=== PATIENT | female | born 1950 | race Caucasian/White ===

== ENCOUNTER 2016-10-15 18:30 | Emergency (ER) | payer OTHER ==
--- NOTE | 2016-10-15 18:55 | PDOC ---
History of Present Illness - General Chief Complaint: Respiratory Stated Complaint: COUGH Time Seen by Provider: 10/15/16 18:47 History Source: Patient Exam Limitations: No Limitations - History of Present Illness Initial Comments: 10/15/16 19:16 This is a 65-year-old female who comes in complaining of 4 days of upper respiratory tract type symptoms, cough, congestion, sore throat and, low-grade fever and bodyaches. Patient called her doctor 2 days ago told her she should go to the emergency room for evaluation because she is on an immunosuppressant for rheumatoid arthritis however patient thought it would get better but has not improved so she now comes in for evaluation. Patient said that she has some phlegm intermittently that is green and yellow. Patient's maximum temperature today was 100.7. PAST MEDICAL HISTORY: PAST SURGICAL HISTORY: no significant history FAMILY HISTORY: no pertinant history SOCIAL HISTORY: Pt lives with family and is employed. MEDICATIONS: reviewed ALLERGIES: As per nursing notes Review of Systems General: Positive low-grade fevers or chills, no weakness, no weight loss HEENT: No change in vision. Positive sore throat,. No ear pain CardioVascular: no chest pain or shortness of breath Respiratory: Positive cough, no wheezing. Gastrointestinal: no nausea, vomitting, diarrhea or constipation, No rectal bleeding Genitourinary: No dysuria, hematuria, or frequency Musculoskeletal: No joint or muscle pain or swelling Neurologic: No headache, vertigo, dizziness or loss of consciousness Psychiatric: nor depression Skin: No rashes or easy bruising Endocrine: no increased thirst or abnormal weight change Allergic: no skin or latex allergy All other systems reviewed and normal Exam: General: Well-nourished well-developed individual, no acute distress HEENT: Throat: there is some mild erythema of the posterior oropharynx is no exudate and tonsils are not enlarged Neck: Supple, no meningeal signs, some small lymphadenopathy on right submandibular EYESl pupils are equal reactive and round, extraocular motion intact Chest: Nontender to palpation Cardiac: S1-S2 normal, regular rate and rhythm, no murmurs rubs or gallops Respiratory: Lungs clear to auscultation bilateral Abdomen: Soft, nondistended, normal bowel sounds, nontender to palpation diffusely Extremities: Warm, dry, no cyanosis, clubbing, or edema Skin: No rashes Neuro: Alert and oriented x3, nonfocal exam, grossly intact, normal gait Psych: Normal mood and affect 10/15/16 20:46 Chest x-ray shows no acute pathology as reviewed by me CBC was done white count is 2. to patient's baseline is around 3.3. Assessment and plan: This is an 65-year-old female who comes in complaining of cough congestion 3 days with low-grade fever. Patient symptoms and exam are suggestive of a viral etiology. Patient did however get a chest x-ray that was negative for any infiltrate. Patient had a CBC done as she is on an immunosuppressant for her rheumatoid arthritis and her white count was 2.2 which is a little lower than her baseline around 3.3. Patient was discharged and will follow-up with her DrLeonel on Monday. I did send a prescription for azithromycin to the pharmacy and told her if she is runs a high fever or symptoms get significantly worse that she should start the azithromycin and see her doctor Past History - Past Medical History Allergies/Adverse Reactions: Allergies Allergy/AdvReac Type Severity Reaction Status Date / Time codeine Allergy Verified 11/09/15 14:22 Iodinated Contrast Media - Allergy Verified 11/09/15 14:22 Oral and narcotics AdvReac Severe migraines Uncoded 11/09/15 14:22 vomiting Home Medications: Ambulatory Orders Calcium Carbonate/Vitamin D3 [Calcium 600-Vit D3 800 Tablet] 2 each PO DAILY Folic Acid 1 mg PO DAILY 11/09/15 Leflunomide 20 mg PO DAILY 11/09/15 Letrozole 2.5 mg PO DAILY 11/09/15 Multivitamin [Zoo Chews] 1 each PO DAILY 11/09/15 [place]-3S/Dha/Epa/Fish Oil/D3 [Fish Oil + D3 Softgel] 2 each PO DAILY 11/09/15 Ranitidine HCl [Zantac] 150 mg PO BID 11/09/15 Valacyclovir HCl [Valtrex -] 1,000 mg PO DAILY 11/09/15 Azithromycin [Zithromax 250mg Tablets -] 250 mg PO DAILY #6 tablet 10/15/16 Cancer: Yes (BREAST CA) Cardiac Disorders: Yes (MVP) GI Disorders: Yes (IBS) - Surgical History Cardiac Surgery: Yes (CATH NEG) - Psycho/Social/Smoking Cessation Hx Anxiety: No Suicidal Ideation: No Smoking History: Never smoked Have you smoked in the past 12 months: No Hx Alcohol Use: No Drug/Substance Use Hx: No Substance Use Type: None Hx Substance Use Treatment: No ED Treatment Course - LABORATORY CBC & Chemistry Diagram: 10/15/16 19:40 *DC/Admit/Observation/Transfer Diagnosis at time of Disposition: Viral upper respiratory tract infection - Discharge Dispostion Disposition: HOME Condition at time of disposition: Good Admit: No - Patient Instructions Additional Instructions: Tylenol or Motrin as needed for fevers. If your symptoms get significantly worse tomorrow or you run a fever greater than 101 go to the pharmacy and steel pickler the prescription for azithromycin and take as directed. Otherwise follow-up with your primary care Dr. on Monday Return to the emergency department immediately with ANY new, persistent or worsening symptoms. Continue any medications as previously prescribed by your physician. You should follow up with your primary doctor as soon as possible regarding today's emergency department visit. . Please make sure your doctor reviews the results of your emergency evaluation. Thank you for coming to the Emergency Department today for your care. It was a pleasure to see you today. Please note that your evaluation is INCOMPLETE until you follow-up with your doctor.
[2016-10-15 18:56] VITALS: BP 116/83; PULSE 84; TEMP 98.5; BMI 20.5
[2016-10-15 20:32] LABS: MCH 32.4 pg (25.7-33.7); MCHC 34.6 g/dl (32.0-36.0); MEAN CELL VOLUME 93.6 fl (80-96); MEAN PLT VOLUME 8.3 fl (7.5-11.1); PLATELET COUNT 144 K/MM3 (134-434); RDW 12.3 % (11.6-15.6); WHITE BLOOD COUNT 2.2 K/mm3 (4.0-10.8)
== END 2016-10-15 20:57 | disposition home or self-care (01) ==
LOC: FER 18:30
DX: J06.9 Acute upper respiratory infection, unspecified (principal); B97.89 Other viral agents as the cause of diseases classified elsewhere; Z85.3 Personal history of malignant neoplasm of breast; I34.1 Nonrheumatic mitral (valve) prolapse
CPT/HCPCS: 36415; 71020-TC; 85025; 87040; 99282-25

== ENCOUNTER → 2019-03-15 | Emergency (ER) | payer OTHER ==
[~2019-03-15] MED LIST: ASPIRIN 325 MG TABLET ONE; ASPIRIN 325 MG TABLET PO ONE; ATORVASTATIN CA 80 MG TABLET (FP) ONE; ATORVASTATIN CA 80 MG TABLET (FP) PO ONE; CLOPIDOGREL BISULFATE 300 MG TABLET ONE; CLOPIDOGREL BISULFATE 300 MG TABLET PO ONE; HEPARIN - 25,000 UNIT in SODIUM CHLORIDE 495 ML IV SCH; HEPARIN INFUSION - 25,000 UNITS/500 ML INFUS.BAG IVPB ONE; HEPARIN NA (PORCINE) 5,000 UNITS/ML 1ML VIAL IVPUSH ONE; HEPARIN NA (PORCINE) 5,000 UNITS/ML 1ML VIAL ONE; MIDAZOLAM HCL 2 MG/2 ML SINGLE DOSE VIAL ONE; NITROGLYCERIN 50MG/D5W 250ML 50 MG/250 ML ML IVPB ONE; NITROGLYCERIN SUBLINGUAL 1/150 0.4 MG TAB ONE; NITROGLYCERIN SUBLINGUAL 1/150 0.4 MG TAB SL ONE
--- NOTE | 2019-03-15 13:33 | PDOC ---
Attending Attestation - Resident Resident Name: Alis Garcia - ED Attending Attestation I have performed the following: I have examined & evaluated the patient, The case was reviewed & discussed with the resident, I agree w/resident's findings & plan, Exceptions are as noted - HPI HPI: 03/15/19 14:43 Substernal chest pain described as a "tightness" since awakening this morning at about 6 AM. Pain has been persistent and accompanied by intermittent nausea , no vomiting, chills but no diaphoresis, and no shortness of breath. Patient has had chest pain in the past and has been referred to a benefits specialist recruiter. She sees Dr. Kim, but has not been diagnosed with heart disease. She states that she had a "hole in her heart" and a valve problem as a child, but that these never caused significant problems. She is not aware of being hypertensive , having diabetes, or elevated cholesterol. She does not smoke. - Physicial Exam PE: 03/15/19 14:45 Appears anxious. Chest pain persistent, described as a tightness. Vital signs are within normal limits. PERRLA, fundi benign, ENT clear Neck supple without bruit mass or nodes Lungs clear, full breath sounds bilaterally, no rales CV S1-S2 normal without murmur rub or gallop pulses full and symmetric no JVD or edema no bruit regular rate 82 Abdomen soft nontender without mass organomegaly Neurological intact Extremities no CCE Skin clear, no rash, adequate turgor and wet mucous membranes EKG shows ST elevations, most prominent in lead V2, but also present in V1 and V3. Elevation in V2 is approximately 3 to 4 mm Chest x-ray is normal Laboratories including troponin are pending. - Critical Care Time Total Critical Care Time: 30 Critical Care Statement: The care of this patient involved high complexity decision making to prevent further life threatening deterioration of the patient 's condition and/or to evaluate & treat vital organ system(s) failure or risk of failure. - Medical Decision Making 03/15/19 14:54 Assessment: Acute ST elevation [place], persistent chest pain. Hemodynamically stable. No sign of failure Plan : Aspirin, Plavix, and heparin. Nitroglycerin for pain control. Dr. Kim, the patient's benefits specialist recruiter, was paged. Dr. Gracia is on-call, who answered the page. Dr. Garcia, the resident, discussed the case with Dr. Gracia He recommended the administration of heparin, Plavix, and transfer for catheterization as soon as possible to [facility]. He provided the name of an contracts attorney there and we are attempting to contact him. The patient is hemodynamically stable. Her pain is much improved after 2 doses of sublingual nitroglycerin. Aspirin, heparin, and Plavix were begun as recommended by benefits specialist recruiter. 03/15/19 15:25 [facility] has been contacted. She has been accepted for catheterization by interventional cardiology. She is being transferred by the [facility] transfer team by ambulance for cardiac catheterization. No pain and stable upon discharge from the emergency room.
[2019-03-15 13:53] VITALS: TEMP 98.6; BMI 22.6
[2019-03-15 14:12] LABS: BASO % 0.5 % (0-2.0); EOS % 0.3 % (0-4.5); HEMATOCRIT 39.2 % (32.4-45.2); LYMPH % 10.8 % (8-40); MCH 32.3 pg (25.7-33.7); MCHC 33.3 g/dl (32.0-36.0); MEAN CELL VOLUME 97.2 fl (80-96); MEAN PLT VOLUME 7.7 fl (7.5-11.1); MONO % 7.7 % (3.8-10.2); NEUT % 80.7 % (42.8-82.8); PLATELET COUNT 186 K/MM3 (134-434); RBC 4.03 M/mm3 (3.60-5.2); RDW 12.6 % (11.6-15.6); WHITE BLOOD COUNT 6.1 K/mm3 (4.0-10.8)
--- NOTE | 2019-03-15 14:18 | PDOC ---
History of Present Illness - General Chief Complaint: Pain Stated Complaint: PAIN TO CHEST AND BACK WITH RESPIRATION Time Seen by Provider: 03/15/19 13:33 History Source: Patient - History of Present Illness Initial Comments: 03/15/19 14:14 68 yo F PMH rheumatoid arthritis, interstitial cystitis, IBS, presenting with chest pain. States this morning that she woke up with chest pain radiating into both arms and back, associated with nausea w/o vomiting, chills, and feeling "off". States that she called her primary care doctor, who encouraged her to come in. Complains of ongoing chest pain, but denies SOB, abd pain, urinary symptoms, fevers, constipation/diarrhea. Past History - Past Medical History Allergies/Adverse Reactions: Allergies Allergy/AdvReac Type Severity Reaction Status Date / Time codeine Allergy Severe Vomiting Verified 03/15/19 13:33 Iodinated Contrast Media Allergy Intermediate Difficulty Verified 03/15/19 13:33 Breathing narcotics AdvReac Severe migraines Uncoded 03/15/19 13:34 vomiting Home Medications: Ambulatory Orders Calcium Carbonate/Vitamin D3 [Calcium 600-Vit D3 800 Caplet] 2 each PO DAILY Folic Acid 1 mg PO DAILY 11/09/15 Leflunomide 20 mg PO DAILY 11/09/15 Letrozole 2.5 mg PO DAILY 11/09/15 Multivitamin [Zoo Chews] 1 each PO DAILY 11/09/15 [place]-3S/Dha/Epa/Fish Oil/D3 [Fish Oil-Vit D3 Softgel] 2 each PO DAILY 11/09/15 Valacyclovir HCl [Valtrex -] 1,000 mg PO DAILY 11/09/15 Cancer: Yes (BREAST CA) Cardiac Disorders: Yes (MVP) COPD: No GI Disorders: Yes (IBS) Disorders: Yes (CYSTITIS) Kidney Stones: No Psychiatric Problems: No Lung CA: No Other medical history: RHEUMATOID ARTHRITIS, ORAL HERPES - Surgical History Cardiac Surgery: Yes (CATH NEG) - Immunization History Immunization Up to Date: No - Psycho Social/Smoking Cessation Hx Smoking History: Never smoked Have you smoked in the past 12 months: No Information on smoking cessation initiated: No Hx Alcohol Use: Yes (SOCIAL) Drug/Substance Use Hx: No Substance Use Type: None Hx Substance Use Treatment: No *Physical Exam - Vital Signs Last Vital Signs Temp Pulse Resp BP Pulse Ox 98.6 F 87 20 139/71 100 03/15/19 13:31 03/15/19 14:12 03/15/19 14:12 03/15/19 14:12 03/15/19 14:12 - Physical Exam Comments: 03/15/19 14:20 Gen: well-developed, well-nourished, appears to be distressed Neuro: AAOX4, CN II-XII intact, FTN intact, EOMI, PERRLA, 5/5 strength, SILT HEENT: atraumatic, normocephalic, dry mucous membranes Neck: trachea midline, supple CV: regular rate, regular rhythm, no murmurs, rubs, or gallops Pulm: CTA b/l, no wheezing Abd: soft, non-distended, non-tender MSK: full ROM, intact pulses Extr: no edema, no deformities Skin: warm, dry ED Treatment Course - LABORATORY CBC & Chemistry Diagram: 03/15/19 14:05 03/15/19 14:05 - RADIOLOGY Radiology Studies Ordered: Category Date Time Status CXRPORT [CHEST X-RAY PORTABLE*] [RAD] Stat Radiology 03/15/19 14:00 Ordered - Medications Given in the ED: ED Medications Discontinued Medications Generic Name Dose Route Start Last Admin Trade Name Freq PRN Reason Stop Dose Admin Aspirin 325 mg 03/15/19 14:00 03/15/19 14:10 Asa - PO 03/15/19 14:01 325 mg ONCE ONE Administration Medical Decision Making - Medical Decision Making 03/15/19 14:[address] segment elevation in I, V1, prominently in V2, V3, V4, normal sinus at 82 bpm, concerning for acute STEMI. Will get ACS labs, patient potentially to be sent for cath. - CBC, CMP, trop - EKG, CXR - aspirin 325mg PO given - ctm 03/15/19 14:[address] Ludwig (tanning wheel operator) covering team, Dr. Solis, discussed case and sent current EKG image to the physician. Recommends transfer to nearest cath center. Patient received nitro X2, pain 01/15 to 2. 03/15/19 14:36 CBC unremarkable, first trop negative. Starting atorvastatin 80mg, heparin 60 mg /kg bolus with drip of 12 U/kg/hr, plavix 600mg. 03/15/19 15:09 Spoke with [facility], there will do automatic admit for potential cath. Sent picture of EKG to tanning wheel operator Dr. Sheth. 03/15/19 15:20 Labs wnl Discharge - Discharge Information Problems reviewed: Yes Clinical Impression/Diagnosis: Chest pain, STEMI (ST elevation myocardial infarction) Condition: Stable Disposition: TRANSFER ACUTE CARE/OTHER HOSP - Follow up/Referral Referrals: Jefferson Siegel MD [Primary Care Provider] - - Patient Discharge Instructions - Post Discharge Activity
[2019-03-15 14:27] LABS: ALBUMIN 3.9 g/dl (3.4-5.0); BILIRUBIN,TOTAL 0.6 mg/dl (0.2-1); CALCIUM 8.9 mg/dl (8.5-10); CREATININE 0.6 mg/dl (0.55-1.3); POTASSIUM 3.9 mmol/L (3.5-5.1); TOT PROT 6.5 g/dl (6.4-8.2)
[2019-03-15 15:41] VITALS: BP 125/69; PULSE 92
[2019-03-15 15:43] LABS: INR 1.14 (0.82-1.09); PROTHROMBIN TIME (PATIENT) 12.7 SEC (10.2-13.0)
--- NOTE | 2019-03-16 20:13 | EKG ---
Test Reason : Blood Pressure : / mmHG Vent. Rate : 082 BPM Atrial Rate : 082 BPM P-R Int : 152 ms QRS Dur : 068 ms QT Int : 380 ms P-R-T Axes : 057 018 042 degrees QTc Int : 443 ms NORMAL SINUS RHYTHM ST ELEVATION CONSIDER ANTERIOR INJURY OR ACUTE INFARCT ACUTE MT / STEMI ABNORMAL ECG WHEN COMPARED WITH ECG OF 16-JAN-2018 17:46, VENT. RATE HAS INCREASED BY [address] NO LONGER DEPRESSED IN INFERIOR LEADS ST ELEVATION NOW PRESENT IN ANTEROLATERAL LEADS Confirmed by MD RODO, JEAN CLAUDE ([id number]) on 03/16/2019 8:12:47 PM Referred By: Confirmed By:JEAN CLAUDE KOEHLER MD
== END | disposition short-term general hospital (02) ==
LOC: FER 13:29
PROC: 3E033GC Introduction of Other Therapeutic Substance into Peripheral Vein, Percutaneous Approach (ICD-10-PCS; principal; 2019-03-15)
DX: I21.3 ST elevation (STEMI) myocardial infarction of unspecified site (principal); M06.9 Rheumatoid arthritis, unspecified; K58.9 Irritable bowel syndrome, unspecified; N30.10 Interstitial cystitis (chronic) without hematuria; Z85.3 Personal history of malignant neoplasm of breast; Z91.041 Radiographic dye allergy status; Z88.5 Allergy status to narcotic agent
CPT/HCPCS: 36415; 71045-TC-FY; 80053; 84484; 85025; 85610; 85730; 93005; 99285-25; J1644

== ENCOUNTER 2020-05-14 12:21 | Emergency (ER) | payer OTHER | END 2020-05-14 12:39 | disposition home or self-care (01) | LOC: JVIRT 12:21 | DX: Z03.818 Encounter for observation for suspected exposure to other biological agents ruled out (principal) | CPT/HCPCS: C9803; G2012-GT; U0003 ==